=== PATIENT | male | born 1960 | race American Indian/Alaskan Native ===

== ENCOUNTER 2017-06-12 05:45 | Day surgery (SDC) | payer OTHER ==
[2017-06-02 07:57] VITALS: BMI 32.0
[2017-06-12] MEDS ORDERED: ceFAZolin IV 1 gm in Dextrose 0 GM/0 ML BAG IVPB ONE (07:39)
[2017-06-12] MEDS: ceFAZolin IV 2 gm in Dextrose 1 GM/50 ML BAG IVPB ONE ×2 (07:55→08:20)
[2017-06-12] MEDS ORDERED: Lactated Ringer's 1,000 ML IV ONE ×2 (07:55)
[2017-06-12] MEDS: Lidocaine 2% Inj (20ml) ONE ×2 (07:56→08:22)
[2017-06-12] MEDS: Bupivacaine HCl 0.5% PF (10 ml) Inj ONE ×3 (07:56→08:52)
[2017-06-12] MEDS ORDERED: Sodium Chloride 0.9% 0 ML IV ONE (08:01)
[2017-06-12] MEDS ORDERED: Midazolam 2 MG/2 ML VIAL ONE (08:12)
[2017-06-12] MEDS ORDERED: Propofol 10 mg/ml Inj (20 ML) ONE (08:12)
[2017-06-12] MEDS ORDERED: Phenylephrine 10 mg/ml Inj ONE (08:14)
[2017-06-12] MEDS ORDERED: HYDROmorphone 0.5 mg/0.5 ml ISec IVP PRN (08:48)
[2017-06-12] MEDS ORDERED: Acetaminophen-Codeine 300/30 mg Tab PO PRN (09:09)
--- NOTE | 2017-06-12 09:11 | PCM.SURG1 ---
Surgeon's Initial Post Op Note - Surgeon's Notes Surgeon: Dr. Leobardo Russell Regulator Assembler: Mary Ramires PGY2 Type of Anesthesia: IV Sedation, Local Anesthesia Administered By: Dr. Jigar MD Pre-Operative Diagnosis: Right foot plantar fascitis with plantar calcaneal spur Operative Findings: See dictation. I: 3cc of 0.5% Marcain plain, Two total injections of 3:1 mixture of 0.5% Marcaine plain to 1 ampule of Regen Pamela Elmirao. Post-Operative Diagnosis: Same as pre-operative Operation Performed: Right foot- 1) plantar fasciotomy with heel spur resection 2) Injection of flowable amniotic graft Specimen/Specimens Removed: None Estimated Blood Loss: EBL {In ML}: 0 Blood Products Given: N/A Drains Used: No Drains Post-Op Condition: Good Date of Surgery/Procedure: 06/12/17 Time of Surgery/Procedure: 08:30
--- NOTE | 2017-06-12 09:37 | CP.PCM.PN ---
Subjective - Date & Time of Evaluation Date of Evaluation: 06/12/17 Time of Evaluation: 09:32 - Subjective Subjective: pt seen in RR and post op instruction reviewed with pt . vascular status intact . Surgical shoe dispensed and placed on foot . Pt to follow up in 1 wk . Light activity schedule . elevate foot. call office for any concerns . follow up friday for redress . Given RX for Tylenol /codeine #3 #30 1 po q 4h /or 2 q6h PRN pain .RX Napprosyn 500 mg bid pc # 30 /rx Keflex 500 mg bid x 7 days . Objective - Vital Signs/Intake and Output Vital Signs (last 24 hours): Temp Pulse Resp BP Pulse Ox 97.9 F 88 18 141/90 97 06/12/17 06:08 06/12/17 06:08 06/12/17 06:08 06/12/17 06:08 06/12/17 06:08 - Medications Medications: Current Medications Acetaminophen (Tylenol 650 Mg Supp) 650 mg AK Q4 PRN PRN Reason: Pain, Mild (1-3) Acetaminophen/Codeine Phosphate (Tylenol/Codeine 300 Mg/30 Mg) 1 ea PO Q4 PRN PRN Reason: Pain, moderate (4-7) Hydromorphone HCl (Dilaudid) 0.5 mg IVP Q15M PRN PRN Reason: Pain, severe (8-10) Stop: 06/12/17 10:49 Ondansetron HCl (Zofran Inj) 4 mg IVP ONCE PRN PRN Reason: Nausea/Vomiting Stop: 06/12/17 10:49
[2017-06-12 12:16] VITALS: BP 142/89; PULSE 75; RESP 16; TEMP 97.7; O2SAT 99
--- NOTE | 2017-06-12 18:32 | OP ---
PROCEDURE DATE: 06/12/2017 PRIMARY SURGEON: Leobardo Russell DPM SQL MANAGER: Felisha Ramires, PGY-2 ANESTHESIOLOGIST: Dr. Kimball. ANESTHESIA TYPE: MAC IV sedation with local. PREOPERATIVE DIAGNOSES: 1. Right foot plantar fasciitis. 2. Right foot plantar calcaneal heel spur. POSTOPERATIVE DIAGNOSES: 1. Right foot plantar fasciitis. 2. Right foot plantar calcaneal heel spur. PROCEDURES PERFORMED: 1. Right foot plantar fasciotomy with heel spur resection. 2. Injection of logo amniotic graft. INDICATIONS: The patient is a 56-year-old male with the above stated diagnoses. The patient has exhausted of all conservative treatment options provided by Dr. Russell on the outpatient setting and is now in need of surgical intervention. The patient signed the surgical consent after careful explanation of risks, benefits, complications and potential alternatives for proposed surgical procedure. No guarantees were neither given nor employed. All patient's questions were answered to his satisfaction. PREPARATION: The patient was brought into the operating room and placed on the operating room table. The patient's n.p.o. status was confirmed prior to bringing the patient to the operating room. Once IV sedation was confirmed to have been achieved, the patient received a well-padded pneumatic tourniquet in the supramalleolar position to the right ankle, and the patient then received a total of 20 mL of a 1:1 mixture of 0.5% Marcaine plain to 1% lidocaine plain in a local block type fashion to the right heel. Once local anesthesia was confirmed to have been achieved, the right foot was then prepped and draped in the usual sterile manner. Tourniquet was inflated to 250 mmHg and the procedure began. PROCEDURE: Attention was then directed to the plantar aspect of the right foot where under fluoroscopic guidance location of the plantar heel spur was identified. An 18-gauge spinal needle was then used to percutaneously flavio and triangulate distal shelf of plantar heel spur as well as medial fascial plantar bands. At this time, a 1-cm linear longitudinal incision was made in the medial aspect of the patient's heel using a #15 blade. This incision was then deepened down to subcutaneous tissue layers and brought to the level of the plantar fascial medial bands. #15 blade was then passed medialy in "windshield wiper" motion and used to resect the medial bands of the plantar fascia. Complete resection of the medial bands of the plantar fascia were appreciated by introducing a periosteal elevator in a sweeping motion and it was noted that the area of the prior fascial bands was resected and the lateral and central bands remain intact. Next, utilizing a hand rasp under fluoroscopic guidance, the plantar heel spur was resected. Incision site was then flushed with copious amounts of normal saline. Skin was reapproximated and coapted using 3-0 nylon in a simple suture type fashion. The patient then received 2mL injections along the medial and lateral heels respectively. Injections composed of a 3:1 mixture of 0.5% Marcaine plain to 1 ampule of ReGen Pamela RHEO amniotic graft. The patient then received a total of 4 mL of a 3:1 mixture of 0.5% Marcaine plain to ReGen Pamela RHEO along the posterior tibial tendon and along the insertion of the Achilles tendon. The patient then received a total of 3 mL of 0.5% Marcaine plain in a local block type fashion along with distal attachment of the Achilles tendon. Incision and percutaneous infiltration sites were then dressed with Xeroform gauze, 4 x 4 gauze, Brando,Coban and Samuel. POSTOPERATIVE CONDITION: The patient tolerated the anesthesia and procedure well and was escorted to the recovery room with vital signs stable and neurovascular status intact of the right foot. The patient had no complaints or complications. The patient will follow with Dr. Russell in his office on an outpatient basis. Felisha Ramires DPM Leobardo Russell DPM GHISLAINE
== END 2017-06-12 11:43 | disposition home or self-care (01) ==
LOC: C.SDS 05:45
PROVIDERS: ATTEND Podiatrist
DX: M72.2 Plantar fascial fibromatosis (principal); M76.61 Achilles tendinitis, right leg; M77.31 Calcaneal spur, right foot
CPT/HCPCS: 28119; 82948; J0690; J2250; J2370; J2704; J3010; J7120